=== PATIENT | male | born 1995 | race Two or more races ===

== ENCOUNTER 2024-08-10 23:35 | Emergency (ER) | payer OTHER ==
[~2024-08-10] VITALS: Ht 172.7 cm; Wt 59.1 kg
[2024-08-10] MEDS ORDERED: EPINEPHrine 1:1,000 [1 MG/ML] VIAL ONE (23:51)
[2024-08-10 23:59] VITALS: PULSE 60; RESP 20; O2SAT 98
[2024-08-10] MEDS: IPRATROPIUM BROMIDE 0.5 MG/2.5 ML NEB SOLUTION NEB ONE (23:59)
[2024-08-10] MEDS: ALBUTEROL SULFATE 2.5 MG/0.5 ML NEB SOLUTION NEB ONE (23:59)
[2024-08-11] MEDS: EPINEPHrine 1:1,000 [1 MG/ML] VIAL IM ONE
[2024-08-11 00:02] VITALS: TEMP 98.505320
[2024-08-11] MEDS: FAMOTIDINE 20 MG/2 ML VIAL IVP ONE (00:02)
[2024-08-11] MEDS: DiphenhydrAMINE HCL 50 MG/ML VIAL IVP ONE (00:03)
[2024-08-11] MEDS: MethylPREDNISolone SOD SUCC 125 MG/2 ML VIAL IVP ONE (00:03)
[2024-08-11 00:14] VITALS: PULSE 74; RESP 20; O2SAT 100
[2024-08-11 00:15] LABS: BASOPHILS % (AUTO) 0.7 % (0.0-2.0); EOSINOPHILS % (AUTO) 4.3 % (1.0-6.0); HEMATOCRIT 44.6 % (41-53); HEMOGLOBIN 15.2 g/dL (13.5-17.5); LYMPHOCYTES # (AUTO) 2.9 K/uL (1.0-4.8); LYMPHOCYTES % (AUTO) 48.4 % (22.0-44.0); MEAN CORPUSCULAR HEMOGLOBIN 30.9 pg (26.0-34.0); MEAN CORPUSCULAR VOLUME 91 fL (80-100); MONOCYTES # (AUTO) 0.4 K/uL (0.1-1.0); MONOCYTES % (AUTO) 6.2 % (2.0-9.0); NEUTROPHILS # (AUTO) 2.4 K/uL (1.8-7.7); NEUTROPHILS % (AUTO) 40.4 % (40.0-70.0); PLATELET COUNT (AUTO) 257 K/uL (150-450); RED BLOOD CELL COUNT(AUTO) 4.91 MIL/uL (4.50-5.90); RED CELL DISTRIBUTION WIDTH 13.2 % (11.5-14.5)
[2024-08-11 00:18] LABS: ANION GAP 6 mmol/L (8-16); CALCIUM, TOTAL 9.4 mg/dL (8.8-10.5); CARBON DIOXIDE 29 mmol/L (22-29); CHLORIDE 103 mmol/L (98-107); GLOMERULAR FILTR. RATE CALC > 60 mL/min (>60); GLUCOSE,RANDOM 122 mg/dL (70-110); POTASSIUM 3.5 mmol/L (3.5-5.1); SODIUM SERUM 138 mmol/L (136-145); UREA NITROGEN, BLOOD 13 mg/dL (7-18)
[2024-08-11 00:24] LABS: ALBUMIN 4.3 g/dL (3.4-5.0); BILIRUBIN,DIRECT 0.2 mg/dL (0.00-0.20); BILIRUBIN,TOTAL 0.9 mg/dL (0.1-1.0); TOTAL PROTEIN, SERUM 7.3 g/dL (6.4-8.2)
[2024-08-11 00:28] LABS: TROPONIN I-HIGH SENSITIVITY 5 ng/L (<76)
[2024-08-11] MEDS: SODIUM CHLORIDE 0.9% 1,000 ML IV ONE (00:48)
[2024-08-11 02:33] LABS: TROPONIN I-HIGH SENSITIVITY 5 ng/L (<76)
[2024-08-11] MEDS ORDERED: DIPH-1243 PO (04:32)
[2024-08-11] MEDS ORDERED: EPIN0.3P3 IM (04:32)
[2024-08-11] MEDS ORDERED: PRED-554 PO (04:32)
[2024-08-11 06:07] VITALS: BP 122/72; PULSE 62; RESP 21; O2SAT 99
== END 2024-08-11 06:35 | disposition home or self-care (01) ==
LOC: EMS 23:54
DX: T78.2XXA Anaphylactic shock, unspecified, initial encounter (principal); F12.90 Cannabis use, unspecified, uncomplicated; Z98.890 Other specified postprocedural states; Y99.8 Other external cause status
CPT/HCPCS: 99291; 96374; 96361; 96375; 71045; 80048; 80076; 83880; 84484; 85025; 36415; 94640; 93005; 96372; J2919; J1200; J0171; J7030; J3490; J7613